=== PATIENT | male | born 1960 | race Caucasian/White ===

== ENCOUNTER 2021-07-30 04:18 | Day surgery (SDC) | payer BC ==
[2021-07-26 14:25] VITALS: BMI 33.5
[2021-07-30] MEDS ORDERED: LIDOCAINE HCL 1%, 10 MG/ML (20ML VIAL) ONE (07:13)
[2021-07-30] MEDS ORDERED: LIDOCAINE HCL/PF 2% SDV 5ML VIAL ONE (07:14)
[2021-07-30] MEDS ORDERED: DEXAMETHASONE SOD PHOSPHATE 4 MG/1 ML VIAL ONE (07:14)
[2021-07-30] MEDS ORDERED: PROPOFOL 20 ML ONE ×3 (07:14→08:58)
[2021-07-30] MEDS ORDERED: MIDAZOLAM HCL 2 MG/2 ML SINGLE DOSE VIAL ONE (07:15)
[2021-07-30] MEDS ORDERED: BUPIVACAINE HCL/PF 0.5% (5MG/ML) 10 ML VIAL ONE (07:50)
[2021-07-30] MEDS ORDERED: BUPIVACAINE HCL/PF 0.5% (5MG/ML) 10 ML VIAL IJ ONE (08:35)
[2021-07-30] MEDS ORDERED: LIDOCAINE HCL 1%, 10 MG/ML (20ML VIAL) NR ONE (08:35)
[2021-07-30] MEDS ORDERED: ONDANSETRON 4 MG/2 ML VIAL IVPUSH PRN (09:11)
[2021-07-30] MEDS ORDERED: LACTATED RINGERS SOLUTION 1,000 ML IV SCH (09:15)
[2021-07-30 12:57] VITALS: BP 146/71; PULSE 55; TEMP 98.6
== END 2021-07-30 11:00 | disposition home or self-care (01) ==
LOC: JASU-SURG 04:18
PROVIDERS: ATTEND Plastic Surgery
PROC: 0HBHXZZ Excision of Right Upper Leg Skin, External Approach (ICD-10-PCS; 2021-07-30)
PROC: 0LN70ZZ Release Right Hand Tendon, Open Approach (ICD-10-PCS; principal; 2021-07-30 08:00)
DX: M65.331 Trigger finger, right middle finger (principal); D23.71 Other benign neoplasm of skin of right lower limb, including hip
CPT/HCPCS: 88305-TC; 94760